=== PATIENT | male | born 1960 | race African-American/Black ===

== ENCOUNTER 2017-02-14 11:56 | Outpatient (CLI) | payer OTHER ==
[2017-02-14 12:38] LABS: #Basophils 0.1 thou/uL (0.0-0.2); #Eosinphils 0.3 thou/uL (0.0-0.7); #Lymphocytes 1.4 thou/uL (1.20-3.40); #Monocytes 0.5 thou/uL (0.11-0.59); #Neutrophils 3.9 thou/uL (1.40-6.50); %Basophils 1.3 % (0.0-1.0); %Eosinophils 4.3 % (0.0-10.0); %Lymphocytes 22.5 % (21.0-51.0); %Neutrophils 63.9 % (42.0-75.0); ALT (SGPT) 18 U/L (8-55); AST (SGOT) 21 U/L (5-34); Albumin 4.1 g/dL (3.5-5.0); Alkaline Phosphatase 113 U/L (40-150); Anion Gap 16 mmol/L (10-20); BUN (Urea Nitrogen) 19 mg/dL (8.4-25.7); Bilirubin, Total 0.4 mg/dL (0.2-1.2); Calc. Creatinine Clearance 0 mL/min (70-130); Calcium 9.6 mg/dL (7.8-10.44); Carbon Dioxide 23 mmol/L (22-29); Cardiac Risk 5.2 (Less than 4.5); Chloride 95 mmol/L (98-107); Cholesterol 284 mg/dl (< 200 Desired); Estimated GFR-MDRD 44; HDL Cholesterol 55 mg/dL (>60 Neg Risk); Hemoglobin 15.4 g/dL (14.0-18.0); LDL Cholesterol, Calculated 174 mg/dL; Mean Corpuscular HGB CONC 33.6 g/dL (32.0-36.0); Mean Corpuscular Hemoglobin 28.8 pg (27.0-31.0); Mean Corpuscular Volume 85.5 fl (80.0-94.0); Mean Platelet Volume 10.2 fL (7.4-10.4); Platelet Count 155 thou/uL (130-400); Potassium 4.9 mmol/L (3.5-5.1); Protein, Total 7.1 g/dL (6.0-8.3); RBC Distribution Width 14.3 % (11.5-14.5); Red Blood Cell (RBC) Count 5.34 mill/uL (4.70-6.10); Sodium 129 mmol/L (136-145); Triglycerides 277 mg/dL (Less than 150); White Blood Cell (WBC) Count 6.1 thou/uL (4.8-10.8)
[2017-02-14 12:48] LABS: Hemoglobin A1c 19.9 % (4.0-6.0)
[2017-02-14 12:53] LABS: PSA-Asymptomatic (SCREENING) 0.35 ng/mL (0-4.0)
[2017-02-14 12:59] LABS: Glucose 724 mg/dL (70-105)
[2017-02-14 18:34] LABS: Hep C IgG Ab Non-Reactive (NonReactive); Hep C Index 0.11 S/CO (0-0.79)
== END 2017-02-14 11:57 | disposition home or self-care (01) ==
LOC: HPCALD 11:56
PROVIDERS: ATTEND Family Medicine
DX: Z12.5 Encounter for screening for malignant neoplasm of prostate (principal); Z11.59 Encounter for screening for other viral diseases; E11.9 Type 2 diabetes mellitus without complications; E78.5 Hyperlipidemia, unspecified; I10 Essential (primary) hypertension
CPT/HCPCS: 36415; 80053; 80061; 83036; 84443; 85025; 86803; G0103

== ENCOUNTER 2020-06-14 10:02 | Outpatient (CLI) | payer BC ==
--- NOTE | 2020-06-14 17:39 | RAD ---
RIGHT KNEE FOUR VIEWS: 06/14/20 No major fracture was seen. There may be a small joint effusion, but not a large one. Popliteal arter y calcifications are seen as well as beyond the trifurcation. The joint space is normal. IMPRESSION: No acute bony findings. POS: HOME
--- NOTE | 2020-06-14 17:43 | RAD ---
RIGHT HIP TWO VIEWS: 06/14/20 No fracture or area of bony destruction was seen. There may be some slight sclerosis around the right SI joint, but this is not seen completely. The hip joint shows no large amounts of narrowing, only a few small osteophytes. IMPRESSION: No acute bone findings. POS: HOME
== END 2020-06-14 10:03 | disposition home or self-care (01) ==
LOC: BURRAD 10:02
PROVIDERS: ATTEND Family Medicine
DX: M25.561 Pain in right knee (principal)